=== PATIENT | male | born 1995 | race African-American/Black ===

== ENCOUNTER 2023-02-06 09:55 | Emergency (ER) | payer OTHER ==
[2023-02-06 10:22] VITALS: BP 138/79; PULSE 81; RESP 18; TEMP 98.7; BMI 31.1
[2023-02-06] MEDS ORDERED: IBUPROFEN 600 MG TABLET (FP) PO ONE ×2 (10:25→10:33)
== END 2023-02-06 11:45 | disposition home or self-care (01) ==
LOC: FER 09:55
DX: S62.326A Displaced fracture of shaft of fifth metacarpal bone, right hand, initial encounter for closed fracture (principal); M79.641 Pain in right hand; R22.31 Localized swelling, mass and lump, right upper limb; W10.9XXA Fall (on) (from) unspecified stairs and steps, initial encounter; Y93.01 Activity, walking, marching and hiking
CPT/HCPCS: 73130-TC-RT-FY; 99283-25